=== PATIENT | male | born 1965 ===

== ENCOUNTER 2024-05-09 06:18 | Day surgery (SDC) | payer BC, SELFPAY ==
[2024-05-09 10:14] LABS: Glucose - Point of Care 157 mg/dl (70-99)
== END 2024-05-09 11:20 | disposition home or self-care (01) ==
LOC: GI 06:18
PROVIDERS: ATTENDING PHYSICIAN Internal Medicine Gastroenterology
DX: Z12.11 Encounter for screening for malignant neoplasm of colon (principal); K64.8 Other hemorrhoids; K57.30 Diverticulosis of large intestine without perforation or abscess without bleeding; D12.2 Benign neoplasm of ascending colon; D12.3 Benign neoplasm of transverse colon; Z86.0100 Personal history of colon polyps, unspecified
CPT/HCPCS: 45385; 88305; 82962

== ENCOUNTER 2024-06-11 06:25 | Day surgery (SDC) | payer BC, SELFPAY ==
[2024-06-11 09:49] LABS: Glucose - Point of Care 181 mg/dl (70-99)
== END 2024-06-11 11:00 | disposition home or self-care (01) ==
LOC: GI 06:25
PROVIDERS: ATTENDING PHYSICIAN Internal Medicine Gastroenterology
DX: R13.10 Dysphagia, unspecified (principal); R12 Heartburn; K22.2 Esophageal obstruction; K21.00 Gastro-esophageal reflux disease with esophagitis, without bleeding
CPT/HCPCS: 43235; 82962